=== PATIENT | female | born 1955 | race Caucasian/White ===

== ENCOUNTER 2017-02-03 10:44 | Emergency (ER) | payer BC ==
[2017-02-03 12:25] VITALS: BP 155/78
--- NOTE | 2017-02-03 12:42 | UC ---
Skin Complaint HPI - HPI Summary HPI Summary: TICK BITE MID BACK X 1 DAY TICK WAS REMOVED BY HER DAUGHTER NO FEVER, NO CHILLS, NO JOINT PAIN - History of Current Complaint Chief Complaint: UCSkin Time Seen by Provider: 02/03/17 12:23 Stated Complaint: TICK Hx Obtained From: Patient Onset/Duration: Gradual Onset, Lasting Days - 1, Still Present Timing: Constant Onset Severity: Mild Current Severity: Mild Location: Other - MID BACK Character: Redness Aggravating Factor(s): Nothing Alleviating Factor(s): Nothing Associated Signs & Symptoms: Positive: Negative - Allergy/Home Medications Allergies/Adverse Reactions: Allergies Allergy/AdvReac Type Severity Reaction Status Date / Time No Known Allergies Allergy Verified 02/03/17 12:21 Review of Systems Constitutional: Negative Eyes: Negative ENT: Negative Neurological: Negative Is Patient Immunocompromised?: No All Other Systems Reviewed And Are Negative: Yes PMH/Surg Hx/FS Hx/Imm Hx Previously Healthy: Yes - Surgical History Surgical History: None - Family History Known Family History: Negative: Diabetes - Social History Alcohol Use: a glass of wine daily Substance Use Type: None Smoking Status (MU): Former Smoker Type: Cigarettes Amount Used/How Often: 1/4 PPD Length of Time of Smoking/Using Tobacco: 5 Years Have You Smoked in the Last Year: No When Did the Patient Quit Smoking/Using Tobacco: 1979 - Immunization History Most Recent Influenza Vaccination: January 2014 Physical Exam Triage Information Reviewed: Yes Appearance: Well-Appearing, No Pain Distress, Well-Nourished Vital Signs: Initial Vital Signs Temp 98.3 F 02/03/17 12:22 Pulse 91 02/03/17 12:22 Resp 16 02/03/17 12:22 BP 155/78 02/03/17 12:22 Pulse Ox 99 02/03/17 12:22 Vital Signs Reviewed: Yes Eyes: Positive: Conjunctiva Clear ENT: Positive: Normal ENT inspection, Hearing grossly normal, Pharynx normal Neck: Positive: Supple, Nontender, No Lymphadenopathy Respiratory: Positive: Chest non-tender, Lungs clear, Normal breath sounds Cardiovascular: Positive: RRR, No Murmur, Pulses Normal Skin: Positive: Other - TICK SITE MID BACK AREA, MILD ERYTHEMA Course/Dx - Diagnoses Provider Diagnoses: TICK BITE BACK Discharge - Discharge Plan Condition: Stable Disposition: HOME Prescriptions: DOXYcycline CAP(*) [DOXYcycline 100MG CAP(*)] 200 mg PO ONCE #2 cap Patient Education Materials: Tick Bite (ED) Referrals: No Primary Care Phys,NOPCP [Primary Care Provider] - If Needed
== END 2017-02-03 12:47 | disposition home or self-care (01) ==
LOC: UCCORT 10:44
DX: S20.469A Insect bite (nonvenomous) of unspecified back wall of thorax, initial encounter (principal); W57.XXXA Bitten or stung by nonvenomous insect and other nonvenomous arthropods, initial encounter; Y92.9 Unspecified place or not applicable; Z87.891 Personal history of nicotine dependence
CPT/HCPCS: 99212; G0463